=== PATIENT | male | born 1960 | race Caucasian/White ===

== ENCOUNTER 2018-06-18 11:03 | Emergency (ER) | payer BC ==
[2018-06-18 11:11] VITALS: BP 143/85
[2018-06-18] MEDS ORDERED: Sodium Chloride 0.9% 1,000 ML IV ONE (11:16)
--- NOTE | 2018-06-18 11:21 | EDM.PDOC ---
ED HPI GENERAL MEDICAL PROBLEM - General Chief Complaint: Gastrointestinal Problem Stated Complaint: diarrhea Time Seen by Provider: 06/18/18 11:06 Source of Information: Reports: Patient History Limitations: Reports: No Limitations - History of Present Illness INITIAL COMMENTS - FREE TEXT/NARRATIVE: This patient is a 57 year old male that presents to the ER. Patient reports that since he has had diarrhea with abdominal cramping. He also reports having chills and periods of sweating. Patient reports that he took an Immodium yesterday, but continues to have diarrhea. He reports having 13 episodes on , about 10 on Tuesday, and about 10 yesterday, and a couple already this morning. The patient reports that he recently traveled to [facility] for 1 week. He came home Tuesday and flew all day. Patient reports that while in [place] he drank bottled water, brushing his teeth with bottled water, but rinsing his toothbrush with faucet water. He reports zip lining and landing in a large dirty water puddle. The patient reports he is the only one from the trip or around him that has diarrhea. The patient is alert and oriented. Patient denies crews, dizziness, n, v, neck pain, neck stiffness, cp, soa, congestion, cough, urinary changes, rashes. Onset Date: 06/15/18 Duration: Day(s): (3) Quality: Reports: Other (cramping) Severity: Mild Improves with: Reports: None Worsens with: Reports: None Associated Symptoms: Reports: Diaphoresis, Fever/Chills, Loss of Appetite. Denies: Confusion, Chest Pain, Cough, cough w sputum, Headaches, Malaise, Nausea /Vomiting, Rash, Seizure, Shortness of Breath, Syncope, Weakness - Related Data Allergies Allergy/AdvReac Type Severity Reaction Status Date / Time No Known Allergies Allergy Verified 06/18/18 11:11 Home Meds: Home Meds Ascorbate Calcium/Bioflavonoid [Debbie-C 1,000 mg Tablet] 1 each PO DAILY [History] Lactobacillus Acidophilus [Probiotic] 1 each PO DAILY 01/03/15 [History] Vitamin E 1,000 unit PO DAILY 01/03/15 [History] Magnesium Oxide [Magnesium] 1,000 mg PO DAILY 06/18/18 [History] Past Medical History - Past Health History Medical/Surgical History: Denies Medical/Surgical History ED ROS GENERAL - Review of Systems Review Of Systems: See Below Constitutional: Reports: Chills, Diaphoresis, Decreased Appetite HEENT: Reports: No Symptoms Respiratory: Reports: No Symptoms Cardiovascular: Reports: No Symptoms Endocrine: Reports: No Symptoms GI/Abdominal: Reports: Abdominal Pain (cramping), Diarrhea. Denies: Bloody Stool, Nausea, Vomiting : Reports: No Symptoms Musculoskeletal: Reports: No Symptoms Skin: Reports: No Symptoms Neurological: Reports: No Symptoms Psychiatric: Reports: No Symptoms Hematologic/Lymphatic: Reports: No Symptoms Immunologic: Reports: No Symptoms ED EXAM, GI/ABD - Physical Exam Exam: See Below Exam Limited By: No Limitations General Appearance: Alert, WD/WN, No Apparent Distress Eyes: Bilateral: Normal Appearance Ears: Normal External Exam, Normal Canal, Hearing Grossly Normal, Normal TMs Nose: Normal Inspection, Normal Mucosa, No Blood Throat/Mouth: Normal Lips, Normal Teeth, Normal Gums, Normal Oropharynx, Normal Voice, No Airway Compromise, Other (dry mucosa) Head: Atraumatic, Normocephalic Neck: Normal Inspection, Supple, Non-Tender, Full Range of Motion Respiratory/Chest: No Respiratory Distress, Lungs Clear, Normal Breath Sounds, No Accessory Muscle Use Cardiovascular: Normal Peripheral Pulses, Regular Rate, Rhythm, No Edema, No Gallop, No JVD, No Murmur, No Rub GI/Abdominal Exam: Soft, Non-Tender, No Organomegaly, No Distention, No Abnormal Bruit, No Mass, Pelvis Stable, Abnormal Bowel Sounds (hyperactive bowel sounds throughout). No: Distended, Guarding, Rigid, Rebound, Tender, Hernia, Mass, Hepatomegaly, Splenomegaly (Male) Exam: Deferred Rectal (Males) Exam: Deferred Back Exam: Normal Inspection, Full Range of Motion. No: CVA Tenderness (L), CVA Tenderness (R) Extremities: Normal Inspection, Normal Range of Motion, Non-Tender, No Pedal Edema, Normal Capillary Refill Neurological: Alert, Oriented, Normal Cognition, Normal Gait, No Motor/Sensory Deficits Psychiatric: Normal Affect, Normal Mood Skin Exam: Warm, Dry, Intact, Normal Color, No Rash Lymphatic: No Adenopathy Course - Vital Signs Last Recorded V/S: Last Vital Signs Temp 98.7 F 06/18/18 11:09 Pulse 95 06/18/18 11:09 Resp 20 06/18/18 11:09 BP 143/85 H 06/18/18 11:09 Pulse Ox 96 06/18/18 11:09 - Orders/Labs/Meds Orders: Active Orders 24 hr Category Date Time Status E COLI STOOL CULT [MREF] Stat Lab 06/18/18 10:56 Ordered PARASITES, STOOL O&P [MREF] Stat Lab 06/18/18 10:56 Ordered STOOL CULTURE/SHIGA TOXIN [MREF] Stat Lab 06/18/18 10:56 Ordered WBC, STOOL [OP] Stat Lab 06/18/18 10:56 Ordered Levofloxacin/Dextrose 5%-Water [Levaquin in D5W 500 MG/ Med 06/18/18 11:42 Active 100 ML] 500 mg Premix Bag 1 bag IV ONETIME Sodium Chloride 0.9% [Normal Saline] 1,000 ml Med 06/18/18 11:16 Active IV .BOLUS Sodium Chloride 0.9% [Normal Saline] 500 ml Med 06/18/18 11:45 Active IV .BOLUS Medication Orders Sodium Chloride (Normal Saline) 1,000 mls @ 1,000 mls/hr IV .BOLUS ONE Stop: 06/18/18 12:15 Last Admin: 06/18/18 11:22 Dose: 1,000 mls/hr Levofloxacin/Dextrose 500 mg/ (Premix) 100 mls @ 100 mls/hr IV ONETIME ONE Stop: 06/18/18 12:41 Sodium Chloride (Normal Saline) 500 mls @ 1,000 mls/hr IV .BOLUS DEL Labs: Laboratory Tests 06/18/18 06/18/18 Range/Units 11:15 11:15 WBC 4.9 L (5.0-10.0) 10^3/uL RBC 6.38 H (4.50-6.00) 10^6/uL Hgb 18.3 H* (14.0-18.0) g/dL Hct 55.0 H (40.0-54.0) % MCV 86.2 (82.0-94.0) fL MCH 28.7 (27.0-32.0) pg MCHC 33.3 (33.0-38.0) g/dL RDW Coeff of Ying 16.8 H (11.0-15.0) % Plt Count 134 L (150-400) 10^3/uL Add Manual Diff Yes Neutrophils % (Manual) 28 L (35-85) % Band Neutrophils % 5 (0-5) % Lymphocytes % (Manual) 51 (21-55) % Monocytes % (Manual) 15 H (2-12) % Eosinophils % (Manual) 1 (0-5) % Sodium 138 (136-145) mEq/L Potassium 3.8 (3.5-5.0) mEq/L Chloride 98 (98-106) mEq/L Carbon Dioxide 25 (21-32) mmol/L BUN 21 H (7-18) mg/dL Creatinine 1.2 (0.7-1.3) mg/dL Est Cr Clr Drug Dosing 66.28 mL/min Estimated GFR (MDRD) > 60 (>=60) mL/min Glucose 98 (75-99) mg/dL Calcium 8.7 (8.4-10.1) mg/dL Total Bilirubin 2.1 H (0.0-1.0) mg/dL AST 26 (15-37) U/L ALT 30 (12-78) U/L Alkaline Phosphatase 87 (46-116) U/L Total Protein 7.3 (6.4-8.2) g/dL Albumin 3.6 (3.4-5.0) g/dL Meds: Medications Generic Name Dose Route Start Last Admin Trade Name Freq PRN Reason Stop Dose Admin Sodium Chloride 1,000 mls @ 1,000 mls/hr 06/18/18 11:16 06/18/18 11:22 Normal Saline IV 06/18/18 12:15 1,000 mls/hr .BOLUS ONE Administration Levofloxacin/Dextrose 500 mg/ 100 mls @ 100 mls/hr 06/18/18 11:42 Premix IV 06/18/18 12:41 ONETIME ONE Sodium Chloride 500 mls @ 1,000 mls/hr 06/18/18 11:45 Normal Saline IV .BOLUS DEL - Re-Assessments/Exams Free Text/Narrative Re-Assessment/Exam: 06/18/18 11:32 Patient has a mildly elevated hgb, I feel this is due to his dehydration from diarrhea. Departure - Departure Time of Disposition: 11:53 Disposition: Home, Self-Care 01 Condition: Fair Clinical Impression: Gastroenteritis, Dehydration - Discharge Information *PRESCRIPTION DRUG MONITORING PROGRAM REVIEWED*: No *COPY OF PRESCRIPTION DRUG MONITORING REPORT IN PATIENT MOE: No Instructions: Viral Gastroenteritis, Adult, [id number], Dehydration, Adult, [id number] Forms: ED Department Discharge Additional Instructions: Followup with your primary care provider this week for stool results and recheck Return to the ER for worsening of condition or any emergent concerns such as increase in pain, fever, dizziness, or any other concerns Increase fluids Levaquin 500mg 1 pill once a day for 6 days #6 No refill - My Orders Last 24 Hours: My Active Orders 06/18/18 10:56 E COLI STOOL CULT [MREF] Stat PARASITES, STOOL O&P [MREF] Stat STOOL CULTURE/SHIGA TOXIN [MREF] Stat WBC, STOOL [OP] Stat 06/18/18 11:16 Sodium Chloride 0.9% [Normal Saline] 1,000 ml IV .BOLUS 06/18/18 11:42 Levofloxacin/Dextrose 5%-Water [Levaquin in D5W 500 MG/100 ML] 500 mg Premix Bag 1 bag IV ONETIME 06/18/18 11:45 Sodium Chloride 0.9% [Normal Saline] 500 ml IV .BOLUS - Assessment/Plan Last 24 Hours: My Active Orders 06/18/18 10:56 E COLI STOOL CULT [MREF] Stat PARASITES, STOOL O&P [MREF] Stat STOOL CULTURE/SHIGA TOXIN [MREF] Stat WBC, STOOL [OP] Stat 06/18/18 11:16 Sodium Chloride 0.9% [Normal Saline] 1,000 ml IV .BOLUS 06/18/18 11:42 Levofloxacin/Dextrose 5%-Water [Levaquin in D5W 500 MG/100 ML] 500 mg Premix Bag 1 bag IV ONETIME 06/18/18 11:45 Sodium Chloride 0.9% [Normal Saline] 500 ml IV .BOLUS Plan: PLEASE SEE RN NOTE FOR PFSH.
[2018-06-18 11:35] LABS: CHLORIDE,CL 98 mEq/L (98-106)
[2018-06-18 11:41] LABS: SODIUM,NA 138 mEq/L (136-145)
[2018-06-18] MEDS ORDERED: Levofloxacin/Dextrose 5%-Water 500 MG in Premix Bag 1 BAG IV ONE (11:42)
[2018-06-18] MEDS ORDERED: Sodium Chloride 0.9% 500 ML IV SCH (11:45)
== END 2018-06-18 14:25 | disposition home or self-care (01) ==
LOC: CC.ED 11:03
DX: K52.9 Noninfective gastroenteritis and colitis, unspecified (principal); Z79.899 Other long term (current) drug therapy
CPT/HCPCS: 36415; 80053; 85025; 87045; 87046; 87328; 87329; 87899; 89055; 96361; 96365; 99283; J1956; J7030; J7040

== ENCOUNTER 2018-06-23 17:24 | Emergency (ER) | payer BC ==
[2018-06-23] MEDS ORDERED: Cyclobenzaprine 10 MG Tab PO ONE ×2 (17:25→18:20)
[2018-06-23] MEDS ORDERED: Acetaminophen/HYDROcodone 325-5 MG Tab PO ONE (17:25)
[2018-06-23 17:38] VITALS: BP 133/83
[2018-06-23] MEDS ORDERED: Ketorolac 60 MG/2 ML SDV IM ONE (17:57)
[2018-06-23] MEDS ORDERED: Take Home: Acetaminophen/HYDROcodone 325-5 MG, 2 Tab Pack PO ONE (18:21)
[2018-06-23] MEDS ORDERED: Take Home: Cyclobenzaprine 10 MG Tab, 4 Tab Pack PO ONE (18:21)
== END 2018-06-23 18:54 | disposition home or self-care (01) ==
LOC: CC.ED 17:24
DX: S46.912A Strain of unspecified muscle, fascia and tendon at shoulder and upper arm level, left arm, initial encounter (principal); R11.0 Nausea; X58.XXXA Exposure to other specified factors, initial encounter
CPT/HCPCS: 73030; 93005; 96372; 99282; A9270; J1885

== ENCOUNTER → 2021-10-02 | Day surgery (SDC) | payer BC ==
[~2021-10-02] MED LIST: Ketamine 200 MG/20 ML MDV ONE; Lactated Ringers 1,000 ML IV SCH; Lidocaine 2% 5 ML SDV ONE; Propofol 200 MG/20 ML SDV ONE; fentaNYL 100 MCG/2 ML SDV ONE
[2021-10-02 09:41] VITALS: BP 127/81; PULSE 70
== END ==
LOC: CC.SDS 07:25
PROVIDERS: ATTEND Family Medicine
DX: K57.30 Diverticulosis of large intestine without perforation or abscess without bleeding (principal); K31.89 Other diseases of stomach and duodenum; K29.50 Unspecified chronic gastritis without bleeding; K21.00 Gastro-esophageal reflux disease with esophagitis, without bleeding; K29.80 Duodenitis without bleeding; E55.9 Vitamin D deficiency, unspecified; E78.5 Hyperlipidemia, unspecified; Z98.890 Other specified postprocedural states
CPT/HCPCS: 87081; J2704; J3010; J7120

== ENCOUNTER 2021-12-17 15:17 | Emergency (ER) | payer BC ==
[2021-12-17 15:31] VITALS: BP 119/79; PULSE 91
[2021-12-17] MEDS ORDERED: Sodium Chloride 0.9% 10 ML Syringe FLUSH PRN (16:56)
[2021-12-17] MEDS: Ketorolac 30 MG/ML SDV IVPUSH ONE (17:13)
[2021-12-17] MEDS: Iopamidol 755 Mg/ML 100 ML Bottle IVPUSH ONE (17:58)
[2021-12-17] MEDS: Enoxaparin 60 MG/0.6 ML Syringe SUBCUT SCH (19:21)
== END 2021-12-17 19:32 | disposition home or self-care (01) ==
LOC: CC.ED 15:17
DX: M25.561 Pain in right knee (principal); M25.461 Effusion, right knee; M79.89 Other specified soft tissue disorders
CPT/HCPCS: 36415; 71275; 73562-RT; 80053; 85025; 85379; 86140; 96372; 96374; 99283; 99284-25; J1650; J1885; Q9967

== ENCOUNTER 2021-12-19 15:32 | Emergency (ER) | payer BC ==
[2021-12-19] MEDS: Ondansetron 4 MG/2 ML SDV IVPUSH ONE (15:57)
[2021-12-19] MEDS: HYDROmorphone 1 MG/ML Syringe IVPUSH ONE (15:57)
[2021-12-19] MEDS ORDERED: cefTRIAXone 1 GM in Sodium Chloride 0.9% 50 ML IV ONE (15:58)
[2021-12-19] MEDS: cefTRIAXone 1 GM Vial ONE (16:21)
[2021-12-19] MEDS: cefTRIAXone 1 GM Vial IVPUSH ONE (16:26)
[2021-12-19 16:51] VITALS: BP 133/76; PULSE 95
[2021-12-19] MEDS: Take Home: Acetaminophen/HYDROcodone 325-5 MG, 2 Tab Pack PO ONE (17:20)
[2021-12-19] MEDS: Take Home: Doxycycline 100 MG Tab, 4 Tab Pack PO ONE (17:21)
== END 2021-12-19 17:35 | disposition home or self-care (01) ==
LOC: CC.ED 15:32 → SUPCPDRO 15:32 → CC.ED 17:35
DX: L03.115 Cellulitis of right lower limb (principal); M25.461 Effusion, right knee; Z20.822 Contact with and (suspected) exposure to COVID-19
CPT/HCPCS: 36415; 80053; 83605; 85025; 86140; 87040; 96374; 96375; 99283-25; 99284; A9270-GY; J0696; J1170; J2405; U0002

== ENCOUNTER 2022-01-08 17:09 | Emergency (ER) | payer BC ==
[2022-01-08] MEDS ORDERED: Iopamidol 755 Mg/ML 100 ML Bottle IVPUSH ONE (17:32)
[2022-01-08 17:47] VITALS: BP 138/90; PULSE 100
== END 2022-01-08 19:45 | disposition home or self-care (01) ==
LOC: CC.ED 17:09
DX: J90 Pleural effusion, not elsewhere classified (principal)
CPT/HCPCS: 36415; 71275; 80053; 85025; 86140; 99284; J1642; Q9967